=== PATIENT | female | born 1930 | race Caucasian/White ===

== ENCOUNTER → 2016-10-10 | Outpatient (CLI) | payer MEDICARE, BC ==
[~2016-10-10] MED LIST: ASPI81 PO; CALCTAB32 OR; CARV12.5 PO; LOSA25TA31 PO; TAB-TAB PO
[2016-10-10 09:22] LABS: AUTOMATED NEUTROPHIL # 4.8 TH/MM3 (1.8-7.7); BASOPHIL # 0.1 TH/MM3 (0-0.2); BASOPHIL % 0.8 % (0.0-2.0); EOSINOPHIL # 0.4 TH/MM3 (0-0.4); EOSINOPHIL % 5.3 % (0.0-4.0); HEMATOCRIT 39.2 % (35.0-46.0); HEMO FLAGS DIFF FINAL; LYMPHOCYTE # 1.9 TH/MM3 (1.0-4.8); MEAN CELL VOLUME 87.2 FL (80.0-100.0); MEAN CORPUSCULAR HEMOGLOBIN 29.7 PG (27.0-34.0); MEAN CORPUSCULAR HGB CONC 34.1 % (32.0-36.0); NEUT % 61.9 % (16.0-70.0); PLATELET COUNT 218 TH/MM3 (150-450); RED BLOOD COUNT 4.49 MIL/MM3 (4.00-5.30); RED CELL DISTRIBUTION WIDTH 13.4 % (11.6-17.2); WHITE BLOOD COUNT 7.8 TH/MM3 (4.0-11.0)
[2016-10-10 09:59] LABS: ALKALINE PHOSPHATASE 86 U/L (45-117); ALT (GPT) 21 U/L (10-53); ANION GAP 8 MEQ/L (5-15); AST (GOT) 11 U/L (15-37); BICARBONATE 26.8 MEQ/L (21.0-32.0); BLOOD UREA NITROGEN 18 MG/DL (7-18); CHLORIDE 107 MEQ/L (98-107); GLOMERULAR FILTRATION RATE 41 ML/MIN (>89); GLUCOSE,FASTING 95 MG/DL (74-99); HDL CHOLESTEROL 68.5 MG/DL (40.0-60.0); LDL CHOLESTEROL 57 MG/DL (0-99); SODIUM (NA) 142 MEQ/L (136-145); TOTAL BILIRUBIN ADULT 0.4 MG/DL (0.2-1.0)
== END ==
LOC: PLAB 07:53
PROVIDERS: ATTEND Family Medicine
DX: I10 Essential (primary) hypertension (principal); E78.2 Mixed hyperlipidemia; N18.2 Chronic kidney disease, stage 2 (mild)
CPT/HCPCS: 36415; 80053; 80061; 85025

== ENCOUNTER 2017-02-05 12:30 | Emergency (ER) | payer MEDICARE, BC ==
[~2017-02-05] VITALS: Ht 157.5 cm; Wt 80.0 kg
[2017-02-05 12:34] VITALS: BP 146/74; PULSE 103; RESP 16; TEMP 98; O2SAT 92
[2017-02-05] MEDS ORDERED: LOSA50TA PO (12:47)
[2017-02-05] MEDS ORDERED: SIMV10TA PO (12:47)
[2017-02-05] MEDS ORDERED: NIFE1TAB PO (12:47)
[2017-02-05] MEDS ORDERED: ASPI81CH CHEW (12:47)
[2017-02-05] MEDS ORDERED: DONE10TA7 PO (12:47)
--- NOTE | 2017-02-05 12:59 | PD ---
HPI Chief Complaint: General Weakness Time Seen by Provider: 12:41 Travel History International Travel<30 days: No Contact w/Intl Traveler<30days: No Traveled to known affect area: No History of Present Illness HPI The patient is a 86-year-old female who presents emergency department for low back pain with radiculopathy. The patient has a history of chronic low back pain which has progressed in the last several weeks. The pain is located across the lower back, radiates into the right gluteal area and down the right leg to the right knee. She also complains of numbness and tingling that extends down to the right great foot. She denies any recent traumas or history of compression fractures. She denies any accompanying urinary incontinence, constipation, or fecal incontinence. She is able to ambulate, pain is worse with sitting for prolonged periods of time, slightly alleviated by movement. She denies any dysuria, frequency, urgency, or hematuria. She denies any previous history of cancer or metastatic cancer. Symptoms are moderate, worse with sitting for prolonged periods of time, and slightly alleviated with getting upright. The patient had an outpatient CT soft tissue of the right leg ordered by her primary physician, Dr. Devine, and december. However, the patient never had a CT performed. PFSH Past Medical History Arthritis: Yes Asthma: No Autoimmune Disease: No Anxiety: No Depression: No Heart Rhythm Problems: No Cancer: No Cardiovascular Problems: No High Cholesterol: Yes Chemotherapy: No Chest Pain: No Congestive Heart Failure: No COPD: No Cerebrovascular Accident: No Diabetes: No Diminished Hearing: No Endocrine: No GERD: No Glaucoma: No Genitourinary: No Hepatitis: No Hiatal Hernia: No Hypertension: Yes Immune Disorder: No Kidney Stones: No Musculoskeletal: Yes Neurologic: No Psychiatric: No Reproductive: No Respiratory: No Radiation Therapy: No Renal Failure: No Seizures: No Sickle Cell Disease: No Sleep Apnea: No Thyroid Disease: No Ulcer: No Influenza Vaccination: Yes ?: Not Menopausal: Yes Past Surgical History Abdominal Surgery: No AICD: No Arteriovenous Shunt: No Cardiac Surgery: No Ear Surgery: No Endocrine Surgery: No Eye Surgery: No Gynecologic Surgery: Yes (OOPHERECTOMIES) Insulin Pump: No Joint Replacement: No Oral Surgery: No Pacemaker: No Thoracic Surgery: No Other Surgery: Yes Social History Alcohol Use: No Tobacco Use: No Substance Use: No Allergies-Medications (Allergen,Severity, Reaction): Coded Allergies: No Known Allergies (Verified , 02/05/17) Reported Meds & Prescriptions Reported Meds & Active Scripts Active Reported Losartan (Losartan Potassium) 50 Mg Tab 50 Mg PO DAILY Nifedipine ER 24 HR (Nifedipine) 90 Mg Tab 90 Mg PO DAILY Aspirin 81 Mg Chew 81 Mg CHEW DAILY Simvastatin 10 Mg Tab 10 Mg PO HS Donepezil 10 Mg Tab 10 Mg PO DAILY Review of Systems Except as stated in HPI: all other systems reviewed are Neg General / Constitutional: No: Fever Gastrointestinal: No: Nausea, Vomiting, Diarrhea, Abdominal Pain, Constipation Genitourinary: No: Urgency, Frequency, Nocturia, Hematuria, Incontinence Musculoskeletal: Positive: Pain, No: Weakness Neurologic: Positive: Sensory Disturbance, No: Focal Abnormalities Physical Exam Narrative GENERAL: Awake, alert, very pleasant 86-year-old female who appears her stated age and is in no acute respiratory distress. SKIN: Focused skin assessment warm/dry. HEAD: Atraumatic. Normocephalic. EYES: Pupils equal and round. No scleral icterus. No injection or drainage. ENT: No nasal bleeding or discharge. Mucous membranes pink and moist. NECK: Trachea midline. No JVD. CARDIOVASCULAR: Regular rate and rhythm. No murmur appreciated. RESPIRATORY: No accessory muscle use. Clear to auscultation. Breath sounds equal bilaterally. GASTROINTESTINAL: Abdomen soft, non-tender, nondistended. Back: No tenderness of the midline of the lumbar spine. Mild tenderness of the left and right sacroiliac. Mild tenderness of the right sciatic area. MUSCULOSKELETAL: No obvious deformities. No clubbing. No cyanosis. No edema. Strength with flexion of the hips was 5/5 bilaterally, extension knees 55/5 bilaterally, plantar flexion 5/5 bilaterally, dorsiflexion 5/5 bilaterally, flexion right great toe and left great toe 5/5 bilateral. Positive dorsalis pedal pulses. NEUROLOGICAL: Awake and alert. No obvious cranial nerve deficits. Motor grossly within normal limits. Normal speech. Sensation is symmetric on the medial lateral aspect the lower extremity is bilateral. PSYCHIATRIC: Appropriate mood and affect; insight and judgment normal. Data Data Last Documented VS Vital Signs Date Time Temp Pulse Resp B/P Pulse Ox O2 Delivery O2 Flow Rate FiO2 02/05/17 12:34 98.0 103 16 146/[address] Lumb Spine W/O Contrast (02/05/17 ) Urinalysis - C+S If Indicated (02/05/17 12:59) Labs Laboratory Tests Test 02/05/17 13:25 Urine Collection Type CLEAN CATCH Urine Color YELLOW Urine Turbidity CLEAR Urine pH 5.5 Urine Specific [place] 1.014 Urine Protein NEG mg/dL Urine Glucose (UA) NEG mg/dL Urine Ketones NEG mg/dL Urine Occult Blood NEG Urine Nitrite NEG Urine Bilirubin NEG Urine Leukocyte Esterase NEG Urine Squamous Epithelial 0-5 /hpf Cells Microscopic Urinalysis Comment CULT NOT INDICATED Urine Collection Time 1325 [facility] Medical Decision Making Medical Screen Exam Complete: Yes Emergency Medical Condition: Yes Medical Record Reviewed: Yes Interpretation(s) Last Impressions Lumbar Spine CT 02/05/17 0000 Signed Impressions: Service Date/Time: January 13:18 - CONCLUSION: 1. Moderate to severe spinal canal stenosis at L4-5 and L5-S1 2. Moderate spinal canal stenosis at L3-4. 3. Mild spinal canal stenosis L2-3 4. Diffuse primary bony degenerative changes, disc degeneration and disc space narrowing throughout the entire lumbar spine 5. Bilateral facet arthritis at multiple levels. Lucas Morton MD Laboratory Tests Test 02/05/17 13:25 Urine Collection Type CLEAN CATCH Urine Color YELLOW Urine Turbidity CLEAR Urine pH 5.5 Urine Specific [place] 1.014 Urine Protein NEG mg/dL Urine Glucose (UA) NEG mg/dL Urine Ketones NEG mg/dL Urine Occult Blood NEG Urine Nitrite NEG Urine Bilirubin NEG Urine Leukocyte Esterase NEG Urine Squamous Epithelial 0-5 /hpf Cells Microscopic Urinalysis Comment CULT NOT INDICATED Urine Collection Time 1325 Differential Diagnosis Differential diagnosis includes back pain with radiculopathy, spinal stenosis, herniated disc, sciatica, compression fracture, metastatic cancer, chronic Klonopin. Narrative Course CT of the lumbar spine was ordered. UA was sent to lab. UA is unremarkable. CT of the lumbar spine reveals severe spinal stenosis, most likely the cause of her radiculopathy. I do discussion with the patient regarding anti- inflammatories, should he takes Aleve 1 pill twice a day, therefore, I will not add any more NSAIDs or oral steroids. I will prescribe [place] 5 mg/325 mg, is advised to take one half of a pill to one pill every 6 hours as needed. She is advised to follow-up with her primary physician Dr. Devine, she may benefit from outpatient physical therapy and/or pain interventional for possible steroid injections. Patient was provided a copy of her CT results at discharge. She is stable for outpatient follow-up. Diagnosis Primary Impression: Spinal stenosis Qualified Code: M48.07 - Spinal stenosis of lumbosacral region Patient Instructions: General Instructions Additional Instructions: Please provide the patient a copy of her CT results at discharge. Follow-up with Dr. Devine. You may benefit from outpatient physical therapy and/or pain interventional evaluation. Med/Other Pt SpecificInfo: Prescription(s) given Scripts Hydrocodone-Acetaminophen ([place])5-325 mg Tab1 Tab PO Q6H PRN (PAIN) #20 TAB Ref 0 Prov:Leon Vela MD 02/05/17 Disposition: 01 DISCHARGE HOME Condition: Stable Leon Vela MD Feb 05, 2017 12:59
[2017-02-05 13:46] LABS: BLOOD, URINE NEG (NEG); GLUCOSE,URINE NEG (NEG); KETONE, URINE NEG (NEG); NITRITE,URINE NEG (NEG); PH, URINE 5.5 (5.0-8.5)
--- NOTE | 2017-02-05 13:53 | RADRPT ---
EXAM DATE/TIME: 02/05/2017 13:18 [facility] COMPARISON: No previous studies available for comparison. INDICATIONS : Low back pain with radiculopathy down both legs, right is worse. RADIATION DOSE: 39.85 CTDIvol (mGy) MEDICAL HISTORY : Hypertension. SURGICAL HISTORY : None. ENCOUNTER: Initial ACUITY: 4 - 6 months PAIN SCALE: 9/10 LOCATION: Lumbar spine. TECHNIQUE: Volumetric scanning of the lumbar spine was performed. Multiplanar reconstructions in the sagittal, coronal and oblique axial planes were performed. Using automated exposure control and adjustment of the mA and/or kV according to patient size, radiation dose was kept as low as reasonably achievable t o obtain optimal diagnostic quality images. DICOM format image data is available electronically for review and comparison. FINDINGS: VERTEBRAE: There is moderate diffuse primary bony degenerative changes, disc degeneration and disc space narrowi ng involving the entire lumbar spine. No compression fracture injuries are demonstrated. ALIGNMENT: Mild retrolisthesis of L1 over L2 and L2 over L3 T12-L1: The thecal sac has a normal diameter. No evidence of disc bulge or protrusion. The neural foramina are patent bilaterally. L1-L2: Mild broad-based bulging. The neural foramina are patent bilaterally. L2-L3: Moderate diffuse broad-based bulging. Mild narrowing of the neural foramina bilaterally. Bilateral fa cet arthritis. Mild spinal canal stenosis. L3-L4: Moderate diffuse broad-based bulging and narrowing of the neural foramina bilaterally. Bilateral face t arthritis. Hypertrophy of ligamentum flavum. Moderate spinal canal stenosis. L4-L5: Diffuse broad-based and right lateral bulging with narrowing of the right neural foramina. The left n eural foramina appears patent. There is bilateral facet arthritis. There is hypertrophy of ligamentum flavum. Moderate to severe spinal canal stenosis. L5-S1: Moderate diffuse broad-based bulging and narrowing of the neural foramina bilaterally. Bilateral face t arthritis. Moderate to severe spinal canal stenosis. CONCLUSION: 1. Moderate to severe spinal canal stenosis at L4-5 and L5-S1 2. Moderate spinal canal stenosis at L3-4. 3. Mild spinal canal stenosis L2-3 4. Diffuse primary bony degenerative changes, disc degeneration and disc space narrowing throughout t he entire lumbar spine 5. Bilateral facet arthritis at multiple levels. Lucas Morton MD on February 05, 2017 at 13:47 Board Certified Radiologist. This report was verified electronically.
[2017-02-05 13:56] LABS: COMMENT (UR) CULT NOT INDICATED; CULTURE IF INDICATED CULT NOT INDICATED; METHOD OF COLLECTION CLEAN CATCH; SQUAMOUS EPITHELIAL CELL URINE 0-5 /hpf (0-5); URINE COLOR YELLOW (YELLW/STRAW)
[2017-02-05] MEDS ORDERED: NORC5TAB PO (14:11)
== END 2017-02-05 14:17 | disposition home or self-care (01) ==
LOC: PHED 12:30
DX: M48.07 Spinal stenosis, lumbosacral region (principal)
CPT/HCPCS: 72131; 81001; 99284